=== PATIENT | male | born 1975 | race African-American/Black ===

== ENCOUNTER 2017-10-08 09:11 | Emergency (ER) | payer MEDICAID ==
[~2017-10-08] VITALS: Ht 167.6 cm; Wt 88.0 kg
[2017-10-08] MEDS ORDERED: IBUPROFEN 600MG TABLET PO ONE (09:45)
[2017-10-08 12:34] VITALS: BP 127/70
== END 2017-10-08 12:52 | disposition home or self-care (01) ==
LOC: ER 10:07
DX: S43.102A Unspecified dislocation of left acromioclavicular joint, initial encounter (principal); W01.0XXA Fall on same level from slipping, tripping and stumbling without subsequent striking against object, initial encounter; Y93.66 Activity, soccer; Y92.89 Other specified places as the place of occurrence of the external cause
CPT/HCPCS: 73030; 73050; 99284; A4565